=== PATIENT | male | born 1960 | race Caucasian/White ===

== ENCOUNTER 2017-10-21 06:55 | Inpatient (IN) | payer OTHER ==
[~2017-10-21 06:55] MED LIST: Acetaminophen 1,000 MG in Premix Bag 1 BAG IV SCH; Famotidine 20 MG/2 ML SDV IVPUSH SCH; Ketorolac 30 MG/ML SDV IVPUSH SCH; Scopolamine 1.5 MG Transdermal Patch TRDERM SCH; oxyCODONE ER 20 MG TAB.ER PO SCH
[2017-10-21] MEDS ORDERED: fentaNYL 100 MCG/2 ML SDV ONE (07:22)
[2017-10-21] MEDS ORDERED: Midazolam 1 MG/ML 2 ML SDV ONE (07:22)
[2017-10-21] MEDS ORDERED: Lidocaine 2% 5 ML SDV ONE (07:22)
[2017-10-21] MEDS ORDERED: Propofol 200 MG/20 ML SDV ONE ×2 (07:22→08:50)
[2017-10-21] MEDS: Lactated Ringers 1,000 ML IV SCH ×2 (07:25→17:56)
[2017-10-21] MEDS ORDERED: ceFAZolin 1 GM Vial ONE (07:26)
[2017-10-21] MEDS ORDERED: Sodium Chloride 0.9% 20 ML ONE (07:26)
--- NOTE | 2017-10-21 07:32 | PCM.PREANE ---
Preanesthetic Assessment - Procedure Proposed Procedure: Left total arthroplasty - Anesthesia/Transfusion/Family Hx Anesthesia History: Prior Anesthesia Without Reaction Family History of Anesthesia Reaction: No Transfusion History: No Prior Transfusion(s) Intubation History: Unknown - Review of Systems General: Other (arthritic pains) Pulmonary: No Symptoms Cardiovascular: Other (HTN; hypercholesterolemic) Gastrointestinal: Other (GERD - intermittnet) Neurological: Gait Disturbance (due to knee) Other: Reports: None - Physical Assessment NPO Status Date: 10/20/17 NPO Status Time: 22:00 Height: 6 ft 2 in Weight: 213 lb ASA Class: 3 Mental Status: Alert & Oriented x3 Airway Class: Mallampati = 2 Dentition: Reports: Normal Dentition, Missing Tooth/Teeth Thyro-Mental Finger Breadths: 3 Mouth Opening Finger Breadths: 3 ROM/Head Extension: Limited/Partial Lungs: Clear to Auscultation, Normal Respiratory Effort Cardiovascular: Regular Rate, Regular Rhythm, No Murmurs - Allergies Allergies/Adverse Reactions: Allergies Allergy/AdvReac Type Severity Reaction Status Date / Time No Known Allergies Allergy Verified 02/17/14 10:38 - Blood Blood Available: Yes Product(s) Available: PRBC (T and S) - Anesthesia Plan Pre-Op Medication Ordered: Other (per surgeon) Beta Gagandeep: Metoprolol Med Last Dose Date: 10/21/17 Med Last Dose Time: 06:00 - Acknowledgements Anesthesia Type Planned: Spinal (with sedation; LMA if indicated after set up) Pt an Appropriate Candidate for the Planned Anesthesia: Yes Alternatives and Risks of Anesthesia Discussed w Pt/Guardian: Yes Pt/Guardian Understands and Agrees with Anesthesia Plan: Yes PreAnesthesia Questionnaire HEENT History: Reports: Other (See Below) Other HEENT History: wears glasses Cardiovascular History: Reports: High Cholesterol, Hypertension Gastrointestinal History: Reports: GERD Other Gastrointestinal History: occasional heartburn Genitourinary History: Reports: BPH Musculoskeletal History: Reports: Osteoarthritis Other Musculoskeletal History: arthritis to rt knee, occasional back pain, carpal tunnel syndrome Neurological History: Reports: Migraines Endocrine/Metabolic History: Reports: None - Past Surgical History Head Surgeries/Procedures: Reports: None HEENT Surgical History: Reports: Adenoidectomy, Tonsillectomy GI Surgical History: Reports: Cholecystectomy, Hernia, Inguinal Musculoskeletal Surgical History: Reports: Knee Replacement Other Musculoskeletal Surgeries/Procedures:: Rt TKA 11/28/16 - SUBSTANCE USE Smoking Status *Q: Current Some Day Smoker Tobacco Use Within Last Twelve Months: Cigars Second Hand Smoke Exposure: No Recreational Drug Use History: No - HOME MEDS Home Medications: Home Meds Fish Oil/[place]-3 Fatty Acids [Fish Oil 1,000 MG] 1 caplet PO DAILY 11/26/16 [ History] Metoprolol Succinate 25 mg PO DAILY 11/26/16 [History] Multivitamin [Multivitamins] 1 tab PO DAILY 11/26/16 [History] Tamsulosin HCl 0.4 mg PO BEDTIME 11/26/16 [History] atorvaSTATin Calcium [Atorvastatin Calcium] 10 mg PO BEDTIME 11/26/16 [History] Aspirin [[place] Aspirin] 81 mg PO DAILY 10/17/17 [History] Ibuprofen 2 - 3 tab PO ASDIRECTED PRN 10/17/17 [History] - CURRENT (IN HOUSE) MEDS Current Meds: Current Medications Famotidine (Pepcid) 40 mg IVPUSH ONARRIVE JEN Stop: 10/21/17 14:01 Acetaminophen 1,000 mg/ Premix 100 mls @ 400 mls/hr IV ONARRIVE JEN Stop: 10/21/17 14:01 Cefazolin Sodium/Dextrose 2 gm (/ Premix) 50 mls @ 100 mls/hr IV ONCALL JEN Stop: 10/21/17 14:01 Ropivacaine 49.25 ml/Ketorolac Tromethamine 30 mg/Epinephrine HCl 0.5 mg/ Clonidine HCl 80 mcg/ Sodium Chloride 100 mls @ 50 mls/min INJECT ASDIRECTED JEN Stop: 10/21/17 14:01 Lactated Ringer's (Ringers, Lactated) 1,000 mls @ 100 mls/hr IV ASDIRECTED JEN Tranexamic Acid 4,000 mg/ (Sodium Chloride) 140 mls @ 600 mls/hr IV ASDIRECTED JEN Stop: 10/21/17 14:01 Ketorolac Tromethamine (Toradol) 30 mg IVPUSH ONARRIVE JEN Stop: 10/21/17 14:01 Oxycodone HCl (Oxycontin) 20 mg PO ONARRIVE JEN Stop: 10/21/17 14:01 Scopolamine (Transderm-Scop) 1.5 mg TRDERM ONARRIVE JEN Discontinued Medications Fentanyl (Sublimaze) Confirm Administered Dose 100 mcg .ROUTE .STK-MED ONE Stop: 10/21/17 07:23 Lidocaine (Xylocaine-Mpf 2%) Confirm Administered Dose 5 ml .ROUTE .STK-MED ONE Stop: 10/21/17 07:23 Midazolam HCl (Versed 1 Mg/Ml) Confirm Administered Dose 2 mg .ROUTE .STK-MED ONE Stop: 10/21/17 07:23 Propofol (Diprivan 20 Ml) Confirm Administered Dose 400 mg .ROUTE .STK-MED ONE Stop: 10/21/17 07:23 Tranexamic Acid (Cyklokapron) Confirm Administered Dose 4,000 mg .ROUTE .STK- MED ONE Stop: 10/21/17 07:20
[2017-10-21] MEDS ORDERED: Ropivacaine 49.25 ML, Ketorolac 30 MG, EPINEPHrine 0.5 MG, cloNIDine 80 MCG in Sodium C... INJECT SCH (08:00)
[2017-10-21] MEDS ORDERED: Tranexamic Acid 4,000 MG in Sodium Chloride 0.9% 100 ML IV SCH (08:00)
[2017-10-21] MEDS ORDERED: ceFAZolin 2 GM in Premix Bag 1 BAG IV SCH ×2 (08:00→14:00)
--- NOTE | 2017-10-21 08:29 | PCM.OPNOTE ---
- General Post-Op/Procedure Note Date of Surgery/Procedure: 10/21/17 Operative Procedure(s): L TKA Post-Op Diagnosis: L knee DJD Anesthesia Technique: Moderate Sedation, Spinal Primary Surgeon: Opal Hendrix Mapping Pilot: Mei Walters Mapping Pilot: Francisco J Khan in mLs: 50 Condition: Good Free Text/Narrative:: tt=48 min #[id number]
[2017-10-21] MEDS ORDERED: fentaNYL 100 MCG/2 ML SDV IVPUSH PRN (08:56)
[2017-10-21] MEDS ORDERED: ePHEDrine 50 MG/ML SDV ONE (09:01)
[2017-10-21] MEDS ORDERED: Water For Injection, Sterile 20 ML ONE (09:02)
[2017-10-21] MEDS ORDERED: Ondansetron 4 MG/2 ML SDV IV PRN (09:34)
[2017-10-21] MEDS ORDERED: oxyCODONE 5 MG Tab PO PRN (09:35)
[2017-10-21] MEDS ORDERED: Aluminum Hydroxide/Magnesium Hydroxide/Simethicone Susp 30 ML Cup PO PRN (09:35)
[2017-10-21] MEDS ORDERED: HYDROmorphone 2 MG/ML Syringe IVPUSH PRN (09:35)
[2017-10-21] MEDS ORDERED: diphenhydrAMINE 25 MG Cap PO PRN (09:35)
[2017-10-21] MEDS ORDERED: Bisacodyl 10 MG Supp RECTAL PRN (09:35)
--- NOTE | 2017-10-21 10:41 | PCM.POSTAN ---
POST ANESTHESIA ASSESSMENT - MENTAL STATUS Mental Status: Alert, Oriented - RESPIRATORY Respiratory Status: Respiratory Rate WNL, Airway Patent, O2 Saturation Stable, Supplemental Oxygen (to be continued on the floor) - CARDIOVASCULAR CV Status: Pulse Rate WNL, Blood Pressure Stable - GASTROINTESTINAL GI Status: No Symptoms - PAIN Pain Score: 0 (spinal still active) - POST OP HYDRATION Hydration Status: Adequate & Stable
[2017-10-21] MEDS: Acetaminophen 1,000 MG in Premix Bag 1 BAG IV SCH ×2 (12:34→18:29)
[2017-10-21] MEDS: Ketorolac 30 MG/ML SDV IVPUSH SCH ×2 (14:12→22:29)
[2017-10-21] MEDS: ceFAZolin 2 GM in Premix Bag 1 BAG IV SCH (15:01)
--- NOTE | 2017-10-21 15:36 | PCM48HPAN ---
Post Anesthesia Note - EVALUATION WITHIN 48HRS OF ANESTHETIC Vital Signs in Normal Range: Yes Patient Participated in Evaluation: Yes Respiratory Function Stable: Yes Airway Patent: Yes Cardiovascular Function Stable: Yes Hydration Status Stable: Yes Pain Control Satisfactory: Yes Nausea and Vomiting Control Satisfactory: Yes Mental Status Recovered: Yes
[2017-10-21] MEDS ORDERED: Lactated Ringers 1,000 ML IV ONE (15:50)
[2017-10-21] MEDS ORDERED: Lactated Ringers 1,000 ML IV SCH (16:00)
--- NOTE | 2017-10-21 17:11 | CR ---
EXAMINATION: Left knee HISTORY: Surgery COMPARISON: 08/05/2017 TECHNIQUE: 2 views FINDINGS/IMPRESSION: Postoperative control films demonstrate left uterine the hardware in good positi on and alignment. Operative soft tissue changes noted.
[2017-10-21] MEDS ORDERED: atorvaSTATin 10 MG Tab PO SCH (21:00)
[2017-10-21] MEDS ORDERED: Tamsulosin 0.4 MG Cap.ER PO SCH (21:00)
[2017-10-21] MEDS ORDERED: oxyCODONE ER 20 MG TAB.ER PO SCH (21:00)
[2017-10-21] MEDS ORDERED: Docusate Sodium 100 MG Cap PO SCH (21:00)
[2017-10-22] MEDS: ceFAZolin 2 GM in Premix Bag 1 BAG IV SCH (00:05)
[2017-10-22] MEDS ORDERED: Acetaminophen 500 MG Tab PO SCH (01:30)
[2017-10-22] MEDS: Ketorolac 30 MG/ML SDV IVPUSH SCH (02:09)
[2017-10-22] MEDS ORDERED: Celecoxib 100 MG Cap PO SCH (09:00)
[2017-10-22] MEDS ORDERED: Aspirin 325 MG Tab PO SCH (09:00)
[2017-10-22] MEDS ORDERED: Fish Oil/Omega-3 Fatty Acids 1 Gm Cap PO SCH (09:00)
[2017-10-22] MEDS ORDERED: Multivitamins with Iron/Calcium/Folic Acid/Minerals Tab PO SCH (09:00)
[2017-10-22] MEDS ORDERED: Metoprolol Succinate 25 MG Tab.ER PO SCH (09:00)
[2017-10-22] MEDS ORDERED: Famotidine 20 MG Tab PO SCH (09:00)
[2017-10-22 13:13] VITALS: BP 108/58
--- NOTE | 2017-10-22 17:40 | PCM.SURGPN ---
- General Info Date of Service: 10/22/17 Date of Surgery/Procedure: 10/21/17 POD#: 1 Functional Status: Reports: Pain Controlled, Tolerating Diet, Ambulating - Review of Systems General: Reports: No Symptoms Pulmonary: Reports: No Symptoms Cardiovascular: Reports: No Symptoms Gastrointestinal: Reports: No Symptoms Systems Review Comment:: pt resting comfortably in bed no specific concerns today pain controlled - Patient Data Vitals - Most Recent: Last Vital Signs Temp 98.2 F 10/22/17 12:00 Pulse 65 10/22/17 12:00 Resp 16 10/22/17 12:00 BP 108/58 L 10/22/17 12:00 Pulse Ox 92 L 10/22/17 12:00 Weight - Most Recent: 96.615 kg I&O - Last 24 Hours: Intake & Output 10/22/17 10/22/17 10/22/17 06:59 14:59 22:59 Intake Total 2300 Output Total 1575 Balance 725 Med Orders - Current: Current Medications Acetaminophen (Tylenol Extra Strength) 1,000 mg PO Q6H [facility] Last Admin: 10/22/17 02:07 Dose: 1,000 mg Al Hydroxide/Mg Hydroxide (Mag-Al Plus) 30 ml PO Q4H PRN PRN Reason: indigestion Aspirin (Aspirin) 325 mg PO BID [facility] Atorvastatin Calcium (Lipitor) 10 mg PO BEDTIME [facility] Last Admin: 10/21/17 22:29 Dose: 10 mg Bisacodyl (Dulcolax) 10 mg RECTAL DAILY PRN PRN Reason: Constipation Celecoxib (Celebrex) 200 mg PO BID [facility] Diphenhydramine HCl (Benadryl) 25 - 50 mg PO Q6H PRN PRN Reason: Itching Docusate Sodium (Colace) 100 mg PO BID [facility] Last Admin: 10/21/17 22:28 Dose: 100 mg Famotidine (Pepcid) 40 mg PO DAILY [facility] Fentanyl (Sublimaze) 50 mcg IVPUSH Q5M PRN PRN Reason: Pain (severe 7-10) Stop: 10/22/17 08:56 Fish Oil (Fish Oil) 1 gm PO DAILY [facility] Hydromorphone HCl (Dilaudid) 0.5 - 1 mg IVPUSH Q3H PRN PRN Reason: Pain Lactated Ringer's (Ringers, Lactated) 1,000 mls @ 100 mls/hr IV ASDIRECTED [facility] Last Admin: 10/21/17 17:56 Dose: 100 mls/hr Metoprolol Succinate (Toprol Xl) 25 mg PO DAILY [facility] Multivitamins/Minerals (Thera M Plus) 1 tab PO DAILY [facility] Ondansetron HCl (Zofran) 4 mg IV Q6HR PRN PRN Reason: NAUSEA/VOMITING Oxycodone HCl (Oxycodone) 5 - 10 mg PO Q4H PRN PRN Reason: Pain Last Admin: 10/21/17 12:19 Dose: 10 mg Oxycodone HCl (Oxycontin) 20 mg PO Q12HR [facility] Last Admin: 10/21/17 22:28 Dose: 20 mg Scopolamine (Transderm-Scop) 1.5 mg TRDERM ONARRIVE [facility] Last Admin: 10/21/17 07:22 Dose: 1.5 mg Tamsulosin HCl (Flomax) 0.4 mg PO BEDTIME [facility] Last Admin: 10/21/17 22:28 Dose: 0.4 mg Discontinued Medications Cefazolin Sodium (Ancef) Confirm Administered Dose 2 gm .ROUTE .STK-MED ONE Stop: 10/21/17 07:27 Ephedrine Sulfate (Ephedrine Sulfate) Confirm Administered Dose 50 mg .ROUTE .STK-MED ONE Stop: 10/21/17 09:02 Famotidine (Pepcid) 40 mg IVPUSH ONARRIVE [facility] Stop: 10/21/17 14:01 Last Admin: 10/21/17 07:28 Dose: 40 mg Fentanyl (Sublimaze) Confirm Administered Dose 100 mcg .ROUTE .STK-MED ONE Stop: 10/21/17 07:23 Glycopyrrolate () Confirm Administered Dose 1 mg .ROUTE .STK-MED ONE Stop: 10/21/17 08:36 Acetaminophen 1,000 mg/ Premix 100 mls @ 400 mls/hr IV ONARRIVE [facility] Stop: 10/21/17 14:01 Last Admin: 10/21/17 07:35 Dose: 400 mls/hr Cefazolin Sodium/Dextrose 2 gm (/ Premix) 50 mls @ 100 mls/hr IV ONCALL [facility] Stop: 10/21/17 14:01 Ropivacaine 49.25 ml/Ketorolac Tromethamine 30 mg/Epinephrine HCl 0.5 mg/ Clonidine HCl 80 mcg/ Sodium Chloride 100 mls @ 50 mls/min INJECT ASDIRECTED [facility] Stop: 10/21/17 14:01 Tranexamic Acid 4,000 mg/ (Sodium Chloride) 140 mls @ 600 mls/hr IV ASDIRECTED [facility] Stop: 10/21/17 14:01 Sodium Chloride (Normal Saline) Confirm Administered Dose 20 mls @ as directed .ROUTE .STK-MED [facility] Stop: 10/21/17 07:27 Sterile Water (Sterile Water For Injection) Confirm Administered Dose 20 mls @ as directed .ROUTE .STK-MED ONE Stop: 10/21/17 09:03 Acetaminophen 1,000 mg/ Premix 100 mls @ 400 mls/hr IV Q6H [facility] Stop: 10/21/17 19:44 Last Admin: 10/21/17 18:29 Dose: 400 mls/hr Cefazolin Sodium/Dextrose 2 gm (/ Premix) 50 mls @ 100 mls/hr IV Q8HR [facility] Stop: 10/22/17 06:29 Cefazolin Sodium/Dextrose 2 gm (/ Premix) 50 mls @ 100 mls/hr IV Q8H [facility] Stop: 10/22/17 00:29 Last Admin: 10/22/17 00:05 Dose: 100 mls/hr Lactated Ringer's (Ringers, Lactated) 1,000 mls @ 500 mls/hr IV ASDIRECTED [facility] Lactated Ringer's (Ringers, Lactated) 1,000 mls @ 500 mls/hr IV ONETIME ONE Stop: 10/21/17 17:49 Last Admin: 10/21/17 15:53 Dose: 500 mls/hr Ketorolac Tromethamine (Toradol) 30 mg IVPUSH ONARRIVE [facility] Stop: 10/21/17 14:01 Last Admin: 10/21/17 07:35 Dose: 30 mg Ketorolac Tromethamine (Toradol) 30 mg IVPUSH Q6H [facility] Stop: 10/22/17 04:00 Last Admin: 10/22/17 02:09 Dose: 30 mg Lidocaine (Xylocaine-Mpf 2%) Confirm Administered Dose 5 ml .ROUTE .STK-MED ONE Stop: 10/21/17 07:23 Midazolam HCl (Versed 1 Mg/Ml) Confirm Administered Dose 2 mg .ROUTE .STK-MED ONE Stop: 10/21/17 07:23 Oxycodone HCl (Oxycontin) 20 mg PO ONARRIVE JEN Stop: 10/21/17 14:01 Last Admin: 10/21/17 07:22 Dose: 20 mg Propofol (Diprivan 20 Ml) Confirm Administered Dose 400 mg .ROUTE .STK-MED ONE Stop: 10/21/17 07:23 Propofol (Diprivan 20 Ml) Confirm Administered Dose 200 mg .ROUTE .STK-MED ONE Stop: 10/21/17 08:51 Tranexamic Acid (Cyklokapron) Confirm Administered Dose 4,000 mg .ROUTE .STK- MED ONE Stop: 10/21/17 07:20 - Exam Wound/Incisions: Dressing Dry and Intact General: Alert, Oriented Cardiovascular: Regular Rate, Regular Rhythm Extremities: Other (exam LLE - at/ehl/gastroc 5/5, dp 2+, sensation intact distally) Physical Findings Comment:: vss, afeb uo 1700+mL hgb 12.4 - Problem List Review Problem List Initiated/Reviewed/Updated: Yes - My Orders Last 24 Hours: Active Orders 24 hr Category Date Time Status Ready for Discharge [RC] PER UNIT ROUTINE Care 10/22/17 15:42 Ordered HEMOGLOBIN/HEMATOCRIT,HH [HEME] DAILY Lab 10/22/17 06:00 Ordered HEMOGLOBIN/HEMATOCRIT,HH [HEME] DAILY Lab 10/23/17 06:00 Ordered HEMOGLOBIN/HEMATOCRIT,HH [HEME] DAILY Lab 10/24/17 06:00 Ordered Acetaminophen [Tylenol Extra Strength] Med 10/22/17 01:30 Active 1,000 mg PO Q6H Aspirin Med 10/22/17 09:00 Active 325 mg PO BID Celecoxib [CeleBREX] Med 10/22/17 09:00 Active 200 mg PO BID Docusate Sodium [Colace] Med 10/21/17 21:00 Active 100 mg PO BID Famotidine [Pepcid] Med 10/22/17 09:00 Active 40 mg PO DAILY Fish Oil/[place]-3 Fatty Acids [Fish Oil] Med 10/22/17 09:00 Active 1 gm PO DAILY Metoprolol Succinate [Toprol XL] Med 10/22/17 09:00 Active 25 mg PO DAILY Multivitamins w-Iron/Ca/FA/Min [Thera M Plus] Med 10/22/17 09:00 Active 1 tab PO DAILY Tamsulosin [Flomax] Med 10/21/17 21:00 Active 0.4 mg PO BEDTIME atorvaSTATin [Lipitor] Med 10/21/17 21:00 Active 10 mg PO BEDTIME oxyCODONE ER [OxyCONTIN] Med 10/21/17 21:00 Active 20 mg PO Q12HR Medication Orders Acetaminophen (Tylenol Extra Strength) 1,000 mg PO Q6H [facility] Last Admin: 10/22/17 02:07 Dose: 1,000 mg Al Hydroxide/Mg Hydroxide (Mag-Al Plus) 30 ml PO Q4H PRN PRN Reason: indigestion Aspirin (Aspirin) 325 mg PO BID [facility] Atorvastatin Calcium (Lipitor) 10 mg PO BEDTIME [facility] Last Admin: 10/21/17 22:29 Dose: 10 mg Bisacodyl (Dulcolax) 10 mg RECTAL DAILY PRN PRN Reason: Constipation Celecoxib (Celebrex) 200 mg PO BID [facility] Diphenhydramine HCl (Benadryl) 25 - 50 mg PO Q6H PRN PRN Reason: Itching Docusate Sodium (Colace) 100 mg PO BID [facility] Last Admin: 10/21/17 22:28 Dose: 100 mg Famotidine (Pepcid) 40 mg PO DAILY [facility] Fentanyl (Sublimaze) 50 mcg IVPUSH Q5M PRN PRN Reason: Pain (severe 7-10) Stop: 10/22/17 08:56 Fish Oil (Fish Oil) 1 gm PO DAILY [facility] Hydromorphone HCl (Dilaudid) 0.5 - 1 mg IVPUSH Q3H PRN PRN Reason: Pain Lactated Ringer's (Ringers, Lactated) 1,000 mls @ 100 mls/hr IV ASDIRECTED [facility] Last Admin: 10/21/17 17:56 Dose: 100 mls/hr Infusion: 10/21/17 17:25 Dose: 100 mls/hr Admin: 10/21/17 07:25 Dose: 100 mls/hr Metoprolol Succinate (Toprol Xl) 25 mg PO DAILY [facility] Multivitamins/Minerals (Thera M Plus) 1 tab PO DAILY [facility] Ondansetron HCl (Zofran) 4 mg IV Q6HR PRN PRN Reason: NAUSEA/VOMITING Oxycodone HCl (Oxycodone) 5 - 10 mg PO Q4H PRN PRN Reason: Pain Last Admin: 10/21/17 12:19 Dose: 10 mg Oxycodone HCl (Oxycontin) 20 mg PO Q12HR [facility] Last Admin: 10/21/17 22:28 Dose: 20 mg Scopolamine (Transderm-Scop) 1.5 mg TRDERM ONARRIVE [facility] Last Admin: 10/21/17 07:22 Dose: 1.5 mg Tamsulosin HCl (Flomax) 0.4 mg PO BEDTIME [facility] Last Admin: 10/21/17 22:28 Dose: 0.4 mg - Assessment Assessment (Free Text/Narrative):: POD#1 L TKA acute posthemorrhagic anemia - Plan Plan (Free Text/Narrative):: DC IV fluids DC brush PT today ASA 325mg PO BID if pt does well with PT and pain is controlled, may d/ch to home today d/ch summary #[id number]
--- NOTE | 2017-10-22 17:40 | PCM.SN ---
- Free Text/Narrative Note: Patient seen and examined. Sitting at edge of bed. Ready for discharge. Pain well controlled. Doing well with PT. Hgb stable. VSS, afeb Dressing dry/intact. NVI. POD #1 1. discharge home today 2. continue current pain meds 3. advised to call if questions/concerns
--- NOTE | 2017-10-23 10:32 | OR ---
SURGEON: Opal Hendrix MD DATE OF PROCEDURE: 10/21/2017 PREOPERATIVE DIAGNOSIS: Degenerative joint disease, left knee, tricompartmental. POSTOPERATIVE DIAGNOSIS: Degenerative joint disease, left knee, tricompartmental. PROCEDURE: Left total knee arthroplasty. ASSISTANTS: 1. Mei Walters PA-C. 2. Francisco J Khan PA-C. ANESTHESIA: Spinal with sedation. ESTIMATED BLOOD LOSS: 50 mL. TOURNIQUET TIME: 48 minutes. COMPLICATIONS: None. DVT PROPHYLAXIS: PAS boot and ANH hose to the nonoperative leg. IMPLANTS USED: Venita Persona femoral component size 10 standard (LPS), tibial component size G, 10 mm all-polyethylene articular surface, and 35 mm all-polyethylene patella. FINDINGS: Intraoperative findings showed severe tricompartmental degenerative changes, which were most severe along the medial compartment. Grade 4 chondromalacia and osteophyte formation was noted in all 3 compartments. No significant synovitis was found. BRIEF HISTORY: Mani is a 57-year-old male, who has had complaint of progressive left knee pain. He had failed conservative treatment. He has previously undergone a right total knee arthroplasty and has done well. Due to his lack of response to conservative treatment, I did recommend surgical intervention. The risks and goals of procedure were discussed with the patient and were documented preoperatively. He agreed to proceed. DESCRIPTION OF PROCEDURE: The patient was properly identified and brought to the operating room. The patient was then transferred from the operating room cart and placed on the operating table in a supine position. Anesthesia was administered by the anesthesia staff. After adequate anesthesia was obtained, a well-padded tourniquet was applied to the surgical lower extremity. Amezcua catheter was placed. The lower extremity was then prepped in standard fashion using ChloraPrep solution. It was then sterilely draped. A time-out was performed to ensure correct site and procedure. Preoperative antibiotics were given along with one gram tranexamic acid IV. The surgical site had been marked preoperatively. An Esmarch was used to exsanguinate the right lower extremity and the tourniquet was inflated. An incision was made over the anterior aspect of the knee. The subcutaneous tissues were dissected down to the level of the fascia. A medial parapatellar approach to the knee was made. A portion of the infrapatellar fat pad was then excised. The distal femur was then exposed. The step reamer was used to gain access to the intramedullary canal. This was placed in 6 degrees of valgus. Pins were placed. The distal femoral cutting block was placed and the distal femoral cut was made. Instrumentation was then removed. The femur was then sized. Both Whitesides' line and the epicondylar axis were then marked with electrocautery. The 4-in-1 cutting block was placed. This was placed in a slightly externally rotated position, which corresponded well with the previously drawn lines. The cutting guide was then pinned into position. An Philip wing guide was used to check the depth of resection of our anterior condylar cut and it was felt that no notching would occur. The anterior condylar cut was then made followed by the posterior condylar cut. Both the posterior chamfer and anterior chamfer cuts were then made. The cutting block was then removed along with the excess bony remnants. We then turned our attention to the tibia. The anterior cruciate ligament and posterior cruciate ligament were released and a posterior cruciate ligament retractor was placed to allow the tibia to be pulled anteriorly. The tibial extra-medullary guide was then positioned. We chose to take approximately 2 mm off the lowest side. The proximal tibia cutting guide was then placed and screwed into position. The proximal tibial resection was then made with care being taken to protect the patellar tendon. The bony resection was then removed. The remainder of the medial and lateral meniscus were then excised. Care was taken to protect the popliteus tendon. The tibia was then sized to the appropriate size. The distal femur was then elevated. The posterior capsule was stripped off the distal femur both medially and laterally. The posterior capsule along with the medial and lateral gutters were then injected with a standard mixture consisting of clonidine, epinephrine, Toradol, and ropivacaine, unless any allergies were found preoperatively. The femoral component was then placed onto the distal femur in a slightly lateral position. This fit the femur well. A box cut was then made without difficulty. This was then removed. The tibial trial along with the polyethylene liner was then placed. The knee came easily into full extension and was stable to varus and valgus stressing both in full extension and flexion. Any additional releases were performed at this time. We then returned our attention to the patella. The patella was everted and towel clamps were used to hold the patella in position. It was resected to a 15 millimeter thickness. It was then sized to the appropriate size. It was prepared in the usual fashion after placing the predetermined size clamps. This was placed in a slightly superior and medial position. The clamp was then removed. The patellar trial button was placed. The knee was taken through a range of motion using the no-touch technique. The patella tracked centrally. A drop deniz was then placed to check alignment. All instruments were then removed from the knee. The tibial sizer was then placed on the tibia. The tibia was prepared in the usual fashion using the reamer and broach. This was then removed. All bony surfaces were copiously irrigated with Pulsavac solution. They were then suctioned dry. Cement was prepared on the back table in the usual manner. Antibiotic impregnated cement was used if the patient was diabetic. Once it was prepared, the bone ends were again suctioned dry. The tibia was cemented into place first. This was malleted into position. Excess cement was then cleared. The femur was then placed in a similar manner. We placed the polyethylene trial into place and the knee was brought into full extension. An axial load was placed while keeping the knee in full extension. The patella button was also cemented into position and the clamp was used to hold this in place as the cement was allowed to cure. The wound was copiously irrigated with saline using a Pulsavac software systems analyst. Following this, 1 gram of tranexamic acid was applied topically to the wound during the curing process. After we had adequate curing of the cement, the knee was again taken through a range of motion. The size of the polyethylene was then determined. The polyethylene trial was then removed. The tibial tray was suctioned to make sure there was no remaining soft tissue or cement. Excess cement was cleared from around the edges of the prosthesis as well. The tourniquet was then deflated. We were able to observe for any excess bleeding and none was noted. Electrocautery was used to maintain hemostasis. An additional gram of tranexamic acid was given IV. The retractors were again placed and the predetermined polyethylene was then placed. This was locked into position without difficulty. The knee was again taken through a range of motion with no change from the prior exam. The fascial layer was closed with Number One Vicryl. The subcutaneous tissues were closed with 2-0 Vicryl. The skin was closed with krysta. Xeroform gauze was placed over the wound and a bulky dressing was applied. The patient was then awakened from anesthesia and transferred back to the operating room cart. They were brought to the recovery room in stable condition. All needle and sponge counts were correct. JOELLE ULLOA /[id number]
--- NOTE | 2017-10-23 13:50 | DISCH ---
DATE OF DISCHARGE: 10/22/2017 PRIMARY CARE PHYSICIAN: Khoa Cage M.D. ADMITTING DIAGNOSIS: Degenerative joint disease, left knee, tricompartmental. OTHER MEDICAL DIAGNOSES: 1. Hypertension. 2. Hypercholesterolemia. 3. Gastroesophageal reflux disease. 4. Migraine. DISCHARGE DIAGNOSES: 1. Degenerative joint disease, left knee, tricompartmental. 2. Hypertension. 3. Hypercholesterolemia. 4. Gastroesophageal reflux disease. 5. Migraine. 6. Acute post hemorrhagic anemia. BRIEF HISTORY: Mani is a 57-year-old male, who has had progressive complaints of left knee pain. He has tried and failed conservative treatment. He has previously undergone a right total knee arthroplasty and is doing well with that. At that time, surgical treatment was recommended for his left knee. On October 21, 2017, the patient underwent a left total knee arthroplasty using standard instrumentation done by Dr. Opal Hendrix. This is done under spinal anesthesia with sedation. Tourniquet time was 48 minutes. Estimated blood loss was 50 mL. There were no known complications. Upon completion of the procedure, the patient was transferred to the PACU and subsequently to Med/Surg for postoperative care. HOSPITAL COURSE: Postoperatively, the patient did well. He received 2 doses of antibiotics postoperatively for a total of 24 hours of antibiotic coverage. His pain was well controlled with a combination of oral and IV pain medications. Aspirin 325 mg twice daily was started on postoperative day #1 as DVT prophylaxis. Physical therapy followed him through his hospital stay. His vital signs have been stable. He has been afebrile. His hemoglobin on the morning of October 22 was 12.4. He feels comfortable with discharge to home. DISCHARGE MEDICATIONS: 1. OxyContin 20 mg. 2. Oxycodone 5 mg. 3. Tylenol extra-strength 500 mg. 4. Celebrex 200 mg. 5. Colace 100 mg. 6. Aspirin 325 mg. DISCHARGE INSTRUCTIONS: 1. Follow up in clinic 10 to 14 days from the date of procedure. This appointment has been made for the patient. 2. Physical therapy 2 to 3 times per week for 4 to 6 weeks. 3. No driving while taking narcotic pain medications. 4. ANH hose, on in the morning, off in the evening. 5. Polar Care to the left knee as needed. 6. He is to change his dressing on Thursday, October 26, 2017. He should place a new Aquacel dressing and leave that in place until followup. For complete medication reconciliation and discharge instructions, please refer back to the patient's EHR. Should he have questions or concerns prior to followup, he has been advised to return to clinic or call. ANTWAN ULLOA /[id number]
== END 2017-10-22 16:30 | disposition home or self-care (01) | DRG 470 ==
LOC: MW.MS 06:55
PROVIDERS: ADMIT Orthopaedic Surgery; ATTEND Orthopaedic Surgery
PROC: 0SRD0J9 Replacement of Left Knee Joint with Synthetic Substitute, Cemented, Open Approach (ICD-10-PCS; principal; 2017-10-21)
DX: M17.12 Unilateral primary osteoarthritis, left knee (principal); D62 Acute posthemorrhagic anemia; M94.262 Chondromalacia, left knee; M25.762 Osteophyte, left knee; I10 Essential (primary) hypertension; E78.00 Pure hypercholesterolemia, unspecified; K21.9 Gastro-esophageal reflux disease without esophagitis; G43.909 Migraine, unspecified, not intractable, without status migrainosus; Z79.899 Other long term (current) drug therapy
CPT/HCPCS: 01402; 36415; 73560-26-LT; 73560-LT; 85014; 85018; 86850; 86900; 86901; 88305; 88311; 97110-GP; 97161-GP; 97530-GP; A9270-GY; C1713; C1776; J0171; J0690; J0735; J1885; J2250; J2704; J2795; J3010; J7050; J7120

== ENCOUNTER 2019-01-30 07:28 | Day surgery (SDC) | payer OTHER ==
[~2019-01-30 07:28] MED LIST changes: -Acetaminophen 1,000 MG in Premix Bag 1 BAG IV SCH; +Bupivacaine 0.5% 10 ML SDV ONE; -Famotidine 20 MG/2 ML SDV IVPUSH SCH; -Ketorolac 30 MG/ML SDV IVPUSH SCH; +Lactated Ringers 1,000 ML IV SCH; -Scopolamine 1.5 MG Transdermal Patch TRDERM SCH; +ceFAZolin 1 GM Vial ONE; -oxyCODONE ER 20 MG TAB.ER PO SCH
--- NOTE | 2019-01-30 08:25 | PCM.PREANE ---
Preanesthetic Assessment - Anesthesia/Transfusion/Family Hx Anesthesia History: Prior Anesthesia Without Reaction Family History of Anesthesia Reaction: No Transfusion History: No Prior Transfusion(s) Intubation History: Unknown - Review of Systems General: No Symptoms Pulmonary: No Symptoms Cardiovascular: No Symptoms Gastrointestinal: No Symptoms Neurological: No Symptoms Other: Reports: None - Physical Assessment O2 Sat by Pulse Oximetry: 95 Respiratory Rate: 20 Vital Signs: Last Vital Signs Temp 36.3 C 01/30/19 07:50 Pulse 85 01/30/19 07:50 Resp 20 01/30/19 07:50 BP 118/73 01/30/19 07:50 Pulse Ox 95 01/30/19 07:50 Height: 1.88 m Weight: 97.069 kg ASA Class: 2 Mental Status: Alert & Oriented x3 Airway Class: Mallampati = 2 Dentition: Reports: Partial (rt. lower (back)) Thyro-Mental Finger Breadths: 2 Mouth Opening Finger Breadths: 3 ROM/Head Extension: Limited/Partial Lungs: Clear to Auscultation, Normal Respiratory Effort Cardiovascular: Regular Rate, Regular Rhythm - Allergies Allergies/Adverse Reactions: Allergies Allergy/AdvReac Type Severity Reaction Status Date / Time No Known Allergies Allergy Verified 01/27/19 14:17 - Blood Blood Available: No - Anesthesia Plan Pre-Op Medication Ordered: None - Acknowledgements Anesthesia Type Planned: General Anesthesia Pt an Appropriate Candidate for the Planned Anesthesia: Yes Alternatives and Risks of Anesthesia Discussed w Pt/Guardian: Yes Pt/Guardian Understands and Agrees with Anesthesia Plan: Yes PreAnesthesia Questionnaire HEENT History: Reports: Other (See Below) Other HEENT History: wears glasses, bottom partial Cardiovascular History: Reports: High Cholesterol, Hypertension Respiratory History: Reports: None Gastrointestinal History: Reports: GERD, Other (See Below) Other Gastrointestinal History: occasional heartburn Genitourinary History: Reports: BPH Musculoskeletal History: Reports: Back Pain, Chronic, Osteoarthritis Other Musculoskeletal History: arthritis to knees, s/p Bilat. TKR Neurological History: Reports: Migraines (once every 8-9 months, strong) Psychiatric History: Reports: None Endocrine/Metabolic History: Reports: None Hematologic History: Reports: None Immunologic History: Reports: None Oncologic (Cancer) History: Reports: None Dermatologic History: Reports: None - Past Surgical History Head Surgeries/Procedures: Reports: None HEENT Surgical History: Reports: Adenoidectomy, Tonsillectomy Cardiovascular Surgical History: Reports: None Respiratory Surgical History: Reports: None GI Surgical History: Reports: Cholecystectomy, Hernia, Inguinal (bilat. inguinal and umbilical hernia at the same time 18 years ago, recurrent hernia on the right side) Other GI Surgeries/Procedures: hx gastric surgery at 6 weeks old (pyloroplasty) Male Surgical History: Reports: None Endocrine Surgical History: Reports: None Neurological Surgical History: Reports: None Musculoskeletal Surgical History: Reports: Knee Replacement Other Musculoskeletal Surgeries/Procedures:: pierre TKA Oncologic Surgical History: Reports: None Dermatological Surgical History: Reports: None - SUBSTANCE USE Smoking Status *Q: Current Some Day Smoker Tobacco Use Within Last Twelve Months: Cigars, Other (See Below) Recreational Drug Use History: No - HOME MEDS Home Medications: Home Meds Fish Oil/[place]-3 Fatty Acids [Fish Oil 1,000 MG] 1 caplet PO DAILY 11/26/16 [ History] Metoprolol Succinate 25 mg PO DAILY 11/26/16 [History] Multivitamin [Multivitamins] 1 tab PO DAILY 11/26/16 [History] Tamsulosin HCl 0.4 mg PO BEDTIME 11/26/16 [History] atorvaSTATin Calcium [Atorvastatin Calcium] 10 mg PO BEDTIME 11/26/16 [History] Aspirin 325 mg PO BID #60 tablet 10/22/17 [Rx] Calcium Carb/Magnesium Hydrox [Antacid Chewable Tablet] 1 tab.chew CHEW ASDIRECTED PRN 01/27/19 [History] Ibuprofen 1 - 2 tab PO ASDIRECTED PRN 01/27/19 [History] - CURRENT (IN HOUSE) MEDS Current Meds: Current Medications Lactated Ringer's (Ringers, Lactated) 1,000 mls @ 125 mls/hr IV ASDIRECTED JEN Last Admin: 01/30/19 08:15 Dose: 125 mls/hr Discontinued Medications Bupivacaine HCl (Sensorcaine-Mpf 0.5%) Confirm Administered Dose 10 ml .ROUTE .STK-MED ONE Stop: 01/30/19 07:17 Cefazolin Sodium (Ancef) Confirm Administered Dose 1 gm .ROUTE .STK-MED ONE Stop: 01/30/19 07:17
[2019-01-30] MEDS ORDERED: Propofol 200 MG/20 ML SDV ONE (09:05)
[2019-01-30] MEDS ORDERED: Midazolam 1 MG/ML 2 ML SDV ONE (09:05)
[2019-01-30] MEDS ORDERED: fentaNYL 250 MCG/5 ML SDV ONE (09:05)
[2019-01-30] MEDS ORDERED: ceFAZolin 1 GM Vial ONE (09:55)
[2019-01-30] MEDS ORDERED: Ondansetron 4 MG/2 ML SDV ONE (09:58)
[2019-01-30] MEDS ORDERED: Dexamethasone 4 MG/ML 5 ML MDV ONE (09:58)
[2019-01-30] MEDS ORDERED: ePHEDrine 50 MG/ML SDV ONE (09:58)
[2019-01-30] MEDS ORDERED: Ketorolac 30 MG/ML SDV ONE (10:28)
[2019-01-30] MEDS ORDERED: Ondansetron 4 MG/2 ML SDV IV PRN (10:51)
[2019-01-30] MEDS ORDERED: Morphine 10 MG/ML Syringe IVPUSH PRN (10:51)
[2019-01-30] MEDS ORDERED: Acetaminophen/HYDROcodone 325-5 MG Tab PO PRN (10:51)
--- NOTE | 2019-01-30 10:54 | PCM.OPNOTE ---
- General Post-Op/Procedure Note Date of Surgery/Procedure: 01/30/19 Operative Procedure(s): Repair recurrent incarcerated right inguinal hernia Pre Op Diagnosis: Recurrent incarcerated right inguinal hernia Post-Op Diagnosis: Same Anesthesia Technique: General LMA (ASA II) Primary Surgeon: Isra Sepulveda Fluid Replacement, Intraop: 1,000 EBL in mLs: 10 Condition: Good Free Text/Narrative:: DICTATION [id number] CPT CODE 51342
[2019-01-30] MEDS ORDERED: Lactated Ringers 1,000 ML IV SCH (11:00)
[2019-01-30] MEDS: fentaNYL 100 MCG/2 ML SDV IVPUSH PRN ×2 (11:19→11:24)
--- NOTE | 2019-01-30 11:23 | PCM.POSTAN ---
POST ANESTHESIA ASSESSMENT - MENTAL STATUS Mental Status: Alert, Oriented - RESPIRATORY Respiratory Status: Respiratory Rate WNL, Airway Patent, O2 Saturation Stable - CARDIOVASCULAR CV Status: Pulse Rate WNL, Blood Pressure Stable - GASTROINTESTINAL GI Status: No Symptoms - PAIN Pain Score: 6 - POST OP HYDRATION Hydration Status: Adequate & Stable
[2019-01-30 13:58] VITALS: BP 115/57
--- NOTE | 2019-01-30 15:36 | OR ---
SURGEON: Isra Sepulveda M.D. DATE OF PROCEDURE: 01/30/2019 OPERATION PERFORMED: Repair of recurrent incarcerated right inguinal hernia. ANESTHESIA: General LMA. ASA CLASSIFICATION: 2. PREOPERATIVE DIAGNOSIS: Recurrent incarcerated right inguinal hernia. POSTOPERATIVE DIAGNOSIS: Recurrent incarcerated right inguinal hernia. ESTIMATED BLOOD LOSS: 10 mL. INTRAOPERATIVE FLUID REPLACEMENT: 1000 mL of crystalloid. DESCRIPTION OF PROCEDURE: The patient was taken to the operating room and placed on the operating table in the supine position. Time-out was called for appropriate identification of the patient and procedure. Thigh-high TEDs and sequential compression boots were placed. Following satisfactory attainment of general anesthesia with placement of an LMA, the abdomen was prepped with DuraPrep solution. Sterile drapes were applied. The patient had a previous transverse incision in the right inguinal crease from earlier hernia repair. This area was anesthetized with 10 mL of 0.5% Marcaine solution. The skin incision was made through the old incision, deepened through the subcutaneous tissue. It appears that he had a Halsted type repair with the cord transposed. Care was taken to use sharp dissection down to the hernia sac, which was able to be mobilized. The cord was then from the sac and encircled with a [place] drain. Using a combination of gentle sharp and blunt dissection, we were able to completely circumferentially dissect the hernia sac. The fascial defect itself was quite small, perhaps 1 cm in greatest dimension. Once the sac was completely mobilized, and the cord retracted out of harm's way, I was able to reduce the hernia sac. The edges of the fascia were grasped with a Marlen clamp. The iliac artery was directly underneath the fascial defect, and it was not felt safe to place the mesh. Also because the defect was quite small, I would have a very difficult time getting mesh in there. The defect was then repaired with multiple interrupted 0 Ethibond sutures. All sutures were placed under direct vision and held with hemostats. Once all sutures had been placed, the sutures were secured. The patient was given a Valsalva maneuver to 40 cm of water and the repair felt solid. The cord was then returned to its previously displaced position. There was no external oblique fascia to reapproximate. The subcutaneous tissue and Anish's fascia were closed with running 3-0 Vicryl. The skin edges were reapproximated with subcuticular 4-0 Monocryl, reinforced with half-inch Steri- Strips. The wound was then dressed with a sterile Tegaderm pad. Sponge, needle, and instrument counts were all correct. Following emergence from anesthesia and extubation, the patient was taken to recovery room in stable condition. SHENG ULLOA /[id number]
== END 2019-01-30 15:38 | disposition home or self-care (01) ==
LOC: MW.SDS 07:28
PROVIDERS: ATTEND Surgery
DX: K42.0 Umbilical hernia with obstruction, without gangrene (principal); E78.00 Pure hypercholesterolemia, unspecified; I10 Essential (primary) hypertension; K21.9 Gastro-esophageal reflux disease without esophagitis; G89.29 Other chronic pain; M54.9 Dorsalgia, unspecified; Z79.899 Other long term (current) drug therapy; Z79.82 Long term (current) use of aspirin; F17.290 Nicotine dependence, other tobacco product, uncomplicated
CPT/HCPCS: 49521; A9270; J0690; J1100; J1885; J2001; J2250; J2270; J2405; J2704; J3010; J3490; J7120

== ENCOUNTER 2019-11-23 07:32 | Day surgery (SDC) | payer OTHER ==
[~2019-11-23 07:32] MED LIST changes: -Bupivacaine 0.5% 10 ML SDV ONE; -ceFAZolin 1 GM Vial ONE; +ceFAZolin 2 GM in Premix Bag 1 BAG IV SCH
--- NOTE | 2019-11-23 08:18 | PCM.PREANE ---
Preanesthetic Assessment - Anesthesia/Transfusion/Family Hx Anesthesia History: Prior Anesthesia Without Reaction Family History of Anesthesia Reaction: No Transfusion History: No Prior Transfusion(s) Intubation History: Unknown - Review of Systems General: No Symptoms Pulmonary: No Symptoms Cardiovascular: No Symptoms Gastrointestinal: No Symptoms Neurological: No Symptoms Other: Reports: None - Physical Assessment Vital Signs: Last Vital Signs Temp 36.2 C 11/23/19 07:46 Pulse 77 11/23/19 07:46 Resp 16 11/23/19 07:46 BP 104/76 11/23/19 07:46 Pulse Ox 95 11/23/19 07:46 Height: 6 ft 2 in Weight: 95.254 kg ASA Class: 3 Mental Status: Alert & Oriented x3 Airway Class: Mallampati = 2 Dentition: Reports: Normal Dentition Thyro-Mental Finger Breadths: 2 Mouth Opening Finger Breadths: 3 ROM/Head Extension: Limited/Partial Lungs: Clear to Auscultation, Normal Respiratory Effort Cardiovascular: Regular Rate, Regular Rhythm - Allergies Allergies/Adverse Reactions: Allergies Allergy/AdvReac Type Severity Reaction Status Date / Time No Known Allergies Allergy Verified 11/18/19 08:20 - Blood Blood Available: No - Anesthesia Plan Pre-Op Medication Ordered: None - Acknowledgements Anesthesia Type Planned: General Anesthesia Pt an Appropriate Candidate for the Planned Anesthesia: Yes Alternatives and Risks of Anesthesia Discussed w Pt/Guardian: Yes Pt/Guardian Understands and Agrees with Anesthesia Plan: Yes PreAnesthesia Questionnaire HEENT History: Reports: Other (See Below) Other HEENT History: wears glasses, bottom partial Cardiovascular History: Reports: High Cholesterol, Hypertension Respiratory History: Reports: None Gastrointestinal History: Reports: GERD, Other (See Below) Other Gastrointestinal History: occasional heartburn Genitourinary History: Reports: BPH Musculoskeletal History: Reports: Back Pain, Chronic, Osteoarthritis Other Musculoskeletal History: arthritis to knees, Neurological History: Reports: Migraines (last one several months ago) Psychiatric History: Reports: None Endocrine/Metabolic History: Reports: None Hematologic History: Reports: None Immunologic History: Reports: None Oncologic (Cancer) History: Reports: None Dermatologic History: Reports: None - Past Surgical History Head Surgeries/Procedures: Reports: None HEENT Surgical History: Reports: Adenoidectomy, Tonsillectomy Cardiovascular Surgical History: Reports: None Respiratory Surgical History: Reports: None GI Surgical History: Reports: Cholecystectomy, Colonoscopy, Hernia, Abdominal ( umbilical), Hernia, Inguinal (right) Other GI Surgeries/Procedures: hx gastric surgery at 6 weeks old (pyloroplasty) , inguinal hernia repair x3 Male Surgical History: Reports: None Endocrine Surgical History: Reports: None Neurological Surgical History: Reports: None Musculoskeletal Surgical History: Reports: Knee Replacement Other Musculoskeletal Surgeries/Procedures:: pierre TKA Oncologic Surgical History: Reports: None Dermatological Surgical History: Reports: None - SUBSTANCE USE Smoking Status *Q: Never Smoker Recreational Drug Use History: No - HOME MEDS Home Medications: Home Meds Fish Oil/[place]-3 Fatty Acids [Fish Oil 1,000 MG] 1 caplet PO DAILY 11/26/16 [ History] Multivitamin [Multivitamins] 1 tab PO DAILY 11/26/16 [History] Tamsulosin HCl 0.4 mg PO BEDTIME 11/26/16 [History] atorvaSTATin Calcium [Atorvastatin Calcium] 20 mg PO BEDTIME 11/26/16 [History] Calcium Carb/Magnesium Hydrox [Antacid Chewable Tablet] 1 tab.chew CHEW ASDIRECTED PRN 01/27/19 [History] Ibuprofen 1 - 2 tab PO ASDIRECTED PRN 01/27/19 [History] Acetaminophen [Tylenol Extra Strength] 2 tab PO ASDIRECTED PRN 11/18/19 [History ] Aspirin [Lo-Dose Aspirin EC] 81 mg PO DAILY 11/18/19 [History] Metoprolol Succinate 25 mg PO DAILY 11/18/19 [History] - CURRENT (IN HOUSE) MEDS Current Meds: Current Medications Cefazolin Sodium/Dextrose 2 gm (/ Premix) 50 mls @ 100 mls/hr IV ONETIME JEN Lactated Ringer's (Ringers, Lactated) 1,000 mls @ 125 mls/hr IV ASDIRECTED JEN Last Admin: 11/23/19 07:51 Dose: 125 mls/hr
[2019-11-23] MEDS ORDERED: ceFAZolin 1 GM Vial ONE (08:45)
[2019-11-23] MEDS ORDERED: Bupivacaine 0.5% 30 ML SDV ONE (08:45)
[2019-11-23] MEDS ORDERED: Midazolam 1 MG/ML 2 ML SDV ONE (08:53)
[2019-11-23] MEDS ORDERED: fentaNYL 250 MCG/5 ML SDV ONE (08:53)
[2019-11-23] MEDS ORDERED: Lidocaine 2% 100 MG/5 ML Syringe ONE (08:53)
[2019-11-23] MEDS ORDERED: Propofol 200 MG/20 ML SDV ONE (08:54)
[2019-11-23] MEDS ORDERED: Ondansetron 4 MG/2 ML SDV ONE (08:54)
[2019-11-23] MEDS ORDERED: ceFAZolin/Dextrose,Iso-Osmotic 2 GM/50 ML Duplex Bag IV ONE (08:56)
[2019-11-23] MEDS ORDERED: Ondansetron 4 MG/2 ML SDV IVPUSH PRN (10:27)
[2019-11-23] MEDS ORDERED: Acetaminophen/HYDROcodone 325-5 MG Tab PO PRN (10:27)
[2019-11-23] MEDS ORDERED: Morphine 10 MG/ML Syringe IVPUSH PRN (10:27)
[2019-11-23] MEDS ORDERED: Lactated Ringers 1,000 ML IV SCH (10:30)
[2019-11-23] MEDS ORDERED: fentaNYL 100 MCG/2 ML SDV ONE (10:35)
[2019-11-23] MEDS: fentaNYL 100 MCG/2 ML SDV IVPUSH PRN ×2 (10:36→10:41)
[2019-11-23] MEDS ORDERED: HYDROmorphone 1 MG/ML Syringe IM ONE (10:40)
[2019-11-23] MEDS ORDERED: HYDROmorphone 2 MG/ML Syringe IM ONE (10:45)
--- NOTE | 2019-11-23 10:46 | PCM.OPNOTE ---
- General Post-Op/Procedure Note Date of Surgery/Procedure: 11/23/19 Operative Procedure(s): Primary repair, recurrent incarcerated left inguinal hernia Pre Op Diagnosis: Recurrent incarcerated left inguinal hernia Post-Op Diagnosis: Same Anesthesia Technique: General LMA (ASA III) Primary Surgeon: Isra Sepulveda Field Mechanical Meter Tester: Allyn Zaidi Fluid Replacement, Intraop: 700 EBL in mLs: 10 Condition: Good Free Text/Narrative:: DICTATION [id number] CPT CODE 49066
--- NOTE | 2019-11-23 11:12 | PCM.POSTAN ---
POST ANESTHESIA ASSESSMENT - MENTAL STATUS Mental Status: Alert, Oriented - VITAL SIGNS Vital Signs: Last Vital Signs Temp 36.4 C 11/23/19 11:05 Pulse 57 L 11/23/19 11:05 Resp 14 11/23/19 11:05 BP 124/84 11/23/19 11:05 Pulse Ox 97 11/23/19 11:05 - RESPIRATORY Respiratory Status: Respiratory Rate WNL, Airway Patent, O2 Saturation Stable - CARDIOVASCULAR CV Status: Pulse Rate WNL, Blood Pressure Stable - GASTROINTESTINAL GI Status: No Symptoms - PAIN Pain Score: 3 - POST OP HYDRATION Hydration Status: Adequate & Stable - OBSERVATIONS Free Text/Narrative:: No anesthesia problems
--- NOTE | 2019-11-23 14:17 | PCM48HPAN ---
Post Anesthesia Note - EVALUATION WITHIN 48HRS OF ANESTHETIC Vital Signs in Normal Range: Yes Patient Participated in Evaluation: Yes Respiratory Function Stable: Yes Airway Patent: Yes Cardiovascular Function Stable: Yes Hydration Status Stable: Yes Pain Control Satisfactory: Yes Nausea and Vomiting Control Satisfactory: Yes Mental Status Recovered: Yes Vital Signs: Last Vital Signs Temp 36.4 C 11/23/19 11:05 Pulse 68 11/23/19 12:50 Resp 16 11/23/19 12:50 BP 128/64 11/23/19 12:50 Pulse Ox 96 11/23/19 12:50 - COMMENTS/OBSERVATIONS Free Text/Narrative:: no anesthesia problems
[2019-11-23 14:19] VITALS: BP 120/64; PULSE 56
--- NOTE | 2019-11-23 16:02 | OR ---
SURGEON: Isra Sepulveda M.D. DATE OF PROCEDURE: 11/23/2019 OPERATION PERFORMED: Repair of recurrent left inguinal hernia. PRIMARY SURGEON: Isra Sepulveda M.D. FRONT OF HOUSE MANAGER: teachers assistant: SARAH Hernandez, assistant child care teacher student. ANESTHESIA: General LMA. ASA CLASSIFICATION: III. PREOPERATIVE DIAGNOSIS: Recurrent left inguinal hernia. POSTOPERATIVE DIAGNOSIS: Recurrent left inguinal hernia. ESTIMATED BLOOD LOSS: 10 mL. INTRAOPERATIVE FLUID REPLACEMENT: 700 mL of crystalloid. DESCRIPTION OF PROCEDURE: The patient was taken to the operating room, placed on the operating table in the supine position. Time-out was called for appropriate identification of the patient and procedure. Thigh-high TEDs and sequential compression boots were placed. Following satisfactory attainment of general anesthesia with placement of an LMA, the left groin was prepped with DuraPrep solution. The surgical site had been marked prior to the patient entering the operating room. The skin was now infiltrated with 0.5% Marcaine solution. The skin incision was made utilizing the old skin incision and deepened through the subcutaneous tissue. The patient did have a rather large defect protruding through the internal ring. I was able to circumferentially dissect this out and then able to reduce it. The iliac artery was directly beneath the fascial defect and it was not felt safe to place mesh in that position for fear of the mesh eroding into the artery. Once the fascial defect had been circumferentially dissected and the hernia sac reduced, the repair was carried out with multiple interrupted 0 Ethibond sutures. Each suture was placed under direct vision and held with a hemostat until the last suture was placed. Once all sutures had been placed and secured, the patient was given a Valsalva maneuver to approximately 40 cm of water. The repair was noted to be solid. The wound was then inspected for hemostasis and irrigated with 1% Ancef solution. The external oblique fascia had not been opened. Anish's fascia was closed with running 3-0 Vicryl. The skin edges were reapproximated with subcuticular 4-0 Monocryl and Steri-Strips. Sterile Tegaderm pad was placed as a dressing. Sponge, needle, and instrument counts were all correct. Following emergence from anesthesia and extubation, the patient was taken to recovery room in stable condition. ANDWOJCIECH / MODL /[id number]
== END 2019-11-23 14:41 | disposition home or self-care (01) ==
LOC: MW.SDS 07:32
PROVIDERS: ATTEND Surgery
DX: K40.91 Unilateral inguinal hernia, without obstruction or gangrene, recurrent (principal); M19.90 Unspecified osteoarthritis, unspecified site; I10 Essential (primary) hypertension; N40.1 Benign prostatic hyperplasia with lower urinary tract symptoms; N13.8 Other obstructive and reflux uropathy; M17.0 Bilateral primary osteoarthritis of knee; E78.00 Pure hypercholesterolemia, unspecified; K21.9 Gastro-esophageal reflux disease without esophagitis; G43.909 Migraine, unspecified, not intractable, without status migrainosus; F17.210 Nicotine dependence, cigarettes, uncomplicated; Z79.82 Long term (current) use of aspirin; Z79.899 Other long term (current) drug therapy
CPT/HCPCS: 49520; A9270; J0690; J1170; J2001; J2250; J2270; J2405; J2704; J3010; J3490; J7120

== ENCOUNTER 2022-12-24 07:13 | Day surgery (SDC) | payer OTHER ==
[~2022-12-24 07:13] MED LIST changes: -Lactated Ringers 1,000 ML IV SCH; -ceFAZolin 2 GM in Premix Bag 1 BAG IV SCH; +cefOXitin 2 GM in Premix Bag 1 BAG IV ONE
[2022-12-24] MEDS ORDERED: Lactated Ringers 1,000 ML IV SCH ×3 (07:25→09:00)
[2022-12-24] MEDS ORDERED: Propofol 200 MG/20 ML SDV ONE ×2 (07:37→08:27)
[2022-12-24] MEDS ORDERED: fentaNYL 100 MCG/2 ML SDV ONE (07:37)
[2022-12-24] MEDS ORDERED: cefOXitin 1 GM Vial ONE (08:01)
[2022-12-24 09:11] VITALS: BP 115/69; PULSE 76
== END 2022-12-24 09:42 | disposition home or self-care (01) ==
LOC: MW.SDS 07:13
PROVIDERS: ATTEND Surgery
DX: K92.1 Melena (principal); I10 Essential (primary) hypertension; M19.90 Unspecified osteoarthritis, unspecified site; N40.1 Benign prostatic hyperplasia with lower urinary tract symptoms; N13.8 Other obstructive and reflux uropathy; E78.00 Pure hypercholesterolemia, unspecified; K21.9 Gastro-esophageal reflux disease without esophagitis; E07.89 Other specified disorders of thyroid; G43.909 Migraine, unspecified, not intractable, without status migrainosus; F17.210 Nicotine dependence, cigarettes, uncomplicated; Z80.0 Family history of malignant neoplasm of digestive organs; Z79.899 Other long term (current) drug therapy; Z79.82 Long term (current) use of aspirin; Z98.890 Other specified postprocedural states
CPT/HCPCS: 45378; J0694; J2704; J3010; J7120